=== PATIENT | female | born 1965 | race Caucasian/White ===

== ENCOUNTER 2019-03-20 11:31 | Emergency (ER) | payer OTHER ==
[~2019-03-20] VITALS: Ht 154.9 cm; Wt 83.5 kg
[~2019-03-20 11:31] MED LIST: FERR-13 PO; FOLI5CAP PO; LEVO25SO PO
[2019-03-20 11:39] VITALS: BP 113/68
--- NOTE | 2019-03-20 11:48 | NUR ---
C/O RT EAR PAIN SINCE SATURDAY RADIATING TO RT MAXILLARY AREA PAIN AT 10/18 .NO CONSULT DONE SELF MEDICATED WITH IBUPROFEN 800 WITH SOME RELIEF. DENIES PREVIOUS ILLNESSES AND MEDICATION. PT AWAKE , ALERT,AFEBRILE, AMBULATORY WITH STEADY GAIT. TM WHITE AND SHINY ,INTACT IN RT EAR , NO DISCHARGES NOTED , NO FACIAL ASSYMMETRY NOTED.
--- NOTE | 2019-03-20 12:15 | NUR ---
dr vasquez at bedside evaluating pt.
[2019-03-20 12:56] VITALS: BP 113/68
--- NOTE | 2019-03-20 12:58 | NUR ---
Patient discharged with v/s stable. Written and verbal after care instructions given and explained regarding otalgia Patient alert, oriented and verbalized understanding of instructions. Ambulatory with steady gait. All questions addressed prior to discharge. ID band removed. Patient advised to follow up with PMD. Rx of claritin given. Patient educated on indication of medication including possible reaction and side effects. Opportunity to ask questions provided and answered.
== END 2019-03-20 12:58 | disposition home or self-care (01) ==
LOC: MED 11:31
DX: H65.91 Unspecified nonsuppurative otitis media, right ear (principal); H57.89 Other specified disorders of eye and adnexa; Z79.899 Other long term (current) drug therapy; Z79.2 Long term (current) use of antibiotics
CPT/HCPCS: 99282

== ENCOUNTER 2019-03-31 19:41 | Emergency (ER) | payer OTHER ==
[~2019-03-31] VITALS: Ht 154.9 cm; Wt 80.3 kg
[2019-03-31 19:44] VITALS: BP 120/67
--- NOTE | 2019-03-31 19:47 | NUR ---
TO [facility] AMBULATORY VISUAL ACUITY BOTH EYE 20/30, LEFT EYE 20/50 RT 20/30
--- NOTE | 2019-03-31 21:51 | NUR ---
PT AMBULATED TO BED 04.
--- NOTE | 2019-03-31 22:45 | NUR ---
Dr. Holland examining patient.
[2019-03-31 22:59] VITALS: BP 120/67
--- NOTE | 2019-03-31 22:59 | NUR ---
Patient discharged with v/s stable. Written and verbal after care instructions given and explained BY DR. CHO. Patient alert, oriented and verbalized understanding of instructions. Ambulatory with steady gait. All questions addressed prior to discharge. ID band removed. Patient advised to follow up with PMD. Rx of SULFACETAMIDE given. Patient educated on indication of medication including possible reaction and side effects. Opportunity to ask questions provided and answered.
--- NOTE | 2019-03-31 22:59 | NUR ---
PT WAS ASSESSED AND D/C BY DR. CHO
== END 2019-03-31 22:59 | disposition home or self-care (01) ==
LOC: MED 19:41
DX: H10.9 Unspecified conjunctivitis (principal); Z79.899 Other long term (current) drug therapy
CPT/HCPCS: 99283